=== PATIENT | female | born 2000 | race Two or more races ===

== ENCOUNTER 2019-04-23 15:31 | Emergency (ER) | payer SELFPAY ==
[~2019-04-23] VITALS: Ht 167.6 cm; Wt 72.6 kg
--- NOTE | 2019-04-23 16:00 | NUR ---
Dr Duggan at the bedside for MSE.
[2019-04-23] MEDS ORDERED: LORAZEPAM 1 MG TABLET ONE (16:08)
[2019-04-23] MEDS ORDERED: LORAZEPAM 0.5 MG TABLET PO ONE (16:15)
--- NOTE | 2019-04-23 16:30 | NUR ---
Pt states feeling better, and decreased anxiety.
--- NOTE | 2019-04-23 16:41 | NUR ---
Patient discharged to home in stable conditon. Written and verbal after care instructions given. Patient verbalizes understanding of instructions.
[2019-04-23 16:51] VITALS: BP 112/56
== END 2019-04-23 16:55 | disposition home or self-care (01) ==
LOC: ER 15:33
DX: F41.1 Generalized anxiety disorder (principal); F45.8 Other somatoform disorders
CPT/HCPCS: 93005; A4663